=== PATIENT | male | born 1990 | race Caucasian/White ===

== ENCOUNTER 2018-12-15 10:28 | Outpatient (REF) | payer MEDICAID, SELFPAY ==
[2018-12-15 18:53] LABS: Abs Immature Grans 0.02 k/cumm (0.0-0.09); Absolute Basophil Count 0.01 k/cumm (0.0-0.2); Absolute Eosinophil Count 0.15 k/cumm (0.0-0.7); Absolute Lymphocyte Count 3.01 k/cumm (1.2-3.4); Absolute Monocyte Count 0.67 k/cumm (0.11-0.7); Basophils % 0.1; Eosinophils % 2.2; HCT 46.8 % (40.0-50.0); HGB 16.1 g/dL (13.5-17.5); Immature Grans % 0.3; Lymphocytes % 43.2; Mean Corp. HGB Concentration 34.4 g/dL (32.0-36.0); Mean Platelet Volume 10.2 fL (8.0-11.0); Monocytes % 9.6; Neutrophils % 44.6; Platelet Count 297 x1000/uL (130-400); RBC Distribution Width 12.3 % (11.8-14.1); White Blood Cell Count 6.96 k/cumm (4.4-10.8)
[2018-12-15 19:01] LABS: ALT 47 U/L (12-78); AST 26 U/L (15-37); Alkaline Phosphatase 58 U/L (46-116); Anion Gap 12.1 mmol/L (3-11); BUN 12 mg/dL (7-18); Bilirubin, Total 0.5 mg/dL (0.2-1.0); CO2 24.9 mmol/L (21.0-32.0); CREATININE 0.74 mg/dL (0.70-1.30); Calcium 9.3 mg/dL (8.5-10.1); Chloride 101 mmol/L (98-107); Glucose 106 mg/dL (70-100); Potassium 4.5 mmol/L (3.5-5.1); Sodium 138 mmol/L (136-145); Total Protein 7.7 g/dL (6.4-8.2)
== END 2018-12-15 10:48 ==
LOC: NCHCN 10:28
PROVIDERS: PCP Nurse Practitioner; Visit Provider Physician Assistant Medical
DX: R03.0 Elevated blood-pressure reading, without diagnosis of hypertension (principal); F10.10 Alcohol abuse, uncomplicated
CPT/HCPCS: 80053; 85025